=== PATIENT | female | born 1975 | race Hispanic/Latino ===

== ENCOUNTER → 2019-07-03 11:58 | Outpatient (CLI) | payer BC, SELFPAY ==
--- NOTE | ~2019-07-03 | US_ITS ---
EXAMINATION: US abdomen complete EXAM DATE: 07/03/2019 12:34 INDICATION: Generalized abdominal pain. Cholecystectomy 2000. TECHNIQUE: Multiple grayscale and Doppler images of the complete abdomen were obtained (by a technolo tigre who performed the scan) and subsequently reviewed. There is no prior study for comparison. FINDINGS: The abdominal aorta is normal in caliber. Visualized portion IVC is patent. The pancreatic head a nd body are normal in appearance. The pancreatic tail is not visualized. The liver has normal echogenicity and contour. There are no focal liver lesions identified. There is no evidence of intrahepatic biliary duct dilation. Portal venous flow was seen in the hepatopedal , normal direction and has normal Doppler waveform. Common bile duct measures 4 mm, which is normal. The gallbladder fossa is unremarkable. Right kidney: There is normal contour and echogenicity. It measures 10.0 x 4.4 x 6.5 centimeters. There are no focal renal lesions identified. There is no hydronephrosis. Left kidney: There is normal contour and echogenicity. It measures 13.0 x 7.0 x 5.4 centimeters. T here are no focal renal lesions identified. There is no hydronephrosis. The spleen measures 10.5 x 3.8 centimeters and is morphologically normal. IMPRESSION: 1. Unremarkable complete abdominal ultrasound exam. Reviewed, dictated and finalized at location A. IC AND ACCESSORIES ESTIMATOR
== END ==
PROVIDERS: PCP Physician Assistant; Visit Provider Physician Assistant
DX: R10.10 Upper abdominal pain, unspecified (principal)
CPT/HCPCS: 76700

== ENCOUNTER → 2019-08-16 13:08 | Outpatient (CLI) | payer BC, SELFPAY ==
--- NOTE | ~2019-08-16 | MM_ITS ---
EXAMINATION: MM screening mar BI w kimberly HISTORY: Screening mammogram TECHNIQUE: Craniocaudal and mediolateral oblique 3-D tomosynthesis images were obtained and synthetic 2-D images were generated. CAD analysis was submitted and interpreted. COMPARISON: 03/06/2018 BREAST PARENCHYMAL COMPOSITION: There are scattered areas of fibroglandular density. FINDINGS: There is no evidence of suspicious mass, calcification, or architectural distortion to sugg est malignancy in either breast. There has been no suspicious interval change. IMPRESSION: 1. No mammographic evidence of malignancy. 2. Recommend routine screening mammography in one year. BI-RADS Category 1: Negative Reviewed, dictated and finalized at location A.
== END ==
DX: Z12.31 Encounter for screening mammogram for malignant neoplasm of breast (principal)
CPT/HCPCS: 77063; 77067

== ENCOUNTER → 2019-08-16 13:09 | Outpatient (CLI) | payer BC, SELFPAY ==
--- NOTE | ~2019-08-16 | XR_ITS ---
XR UGIAC w kub DATE: 08/16/2019 14:06 INDICATION: Upper abdominal pain. Gastroesophageal reflux. TECHNIQUE: Pastrycook'S Assistant AP view of abdomen Air-contrast upper gastrointestinal series 1.3 minutes fluoroscopy time 22.217 DAP 72 images COMPARISON: 07/03/2019 complete abdominal ultrasound examination FINDINGS: There is normal deglutition and esophageal peristalsis. No stricture, mucosal fold thickeni ng, erosion, ulceration or intraluminal mass lesion of the esophagus, stomach or duodenum is detected . The proximal jejunum appears normal. Surgical clips, right upper quadrant, consistent with cholecystectomy. IMPRESSION: Status post cholecystectomy Normal upper gastrointestinal series examination Reviewed, dictated and finalized at Location A. Reviewed, dictated and finalized at location B.
== END ==
PROVIDERS: PCP Physician Assistant; Visit Provider Physician Assistant
DX: R10.10 Upper abdominal pain, unspecified (principal); Z90.49 Acquired absence of other specified parts of digestive tract
CPT/HCPCS: 74246

== ENCOUNTER 2020-05-26 01:03 | Outpatient (CLI) | payer SELFPAY ==
[2020-05-26 17:10] LABS: SARS-CoV-2 RNA PCR Negative
== END 2020-05-26 01:04 | disposition home or self-care (01) ==
LOC: ANHCOVIDDT 01:03
PROVIDERS: Surgery Plastic and Reconstructive Surgery; PCP Physician Assistant; Visit Provider Internal Medicine Gastroenterology
DX: Z01.812 Encounter for preprocedural laboratory examination (principal); Z20.828 Contact with and (suspected) exposure to other viral communicable diseases
CPT/HCPCS: 87635; C9803; U0003

== ENCOUNTER 2020-05-26 07:43 | Outpatient (CLI) | payer SELFPAY ==
--- NOTE | 2020-05-26 07:45 | ECG_ITS ---
Measurements Intervals [place] Rate: 64 P: -1 VT: 133 QRS: 34 QRSD: 92 T: 29 QT: 383 QTc: 397 Interpretive Statements SINUS RHYTHM BASELINE ARTIFACT- I, II, III, AVR, AVL, AVF NORMAL ECG Electronically Signed On 05-26-2020 9:52:52 HAND SHOE CUTTER by Augustus Michelle D.O.
[2020-05-26 08:09] LABS: Hematocrit 34.7 % (37.0-47.0); Hemoglobin 11.2 g/dL (12.0-15.0)
[2020-05-26 08:23] LABS: Anion Gap 3 mmol/L (8-16); Blood Urea Nitrogen 15 mg/dL (7-17); Calcium 9.1 mg/dL (8.4-10.2); Carbon Dioxide 32 mmol/L (22-30); Chloride 104 mmol/L (98-107); Estimated Glomerular Filt Rate > 60; Glucose 100 mg/dL (65-105); Potassium 4.1 mmol/L (3.4-5.0); Sodium 139 mmol/L (137-145)
== END 2020-05-26 07:44 | disposition home or self-care (01) ==
LOC: ANHSURGERY 07:45
PROVIDERS: Anesthesiology; PCP Physician Assistant; Visit Provider Surgery Plastic and Reconstructive Surgery
DX: Z01.818 Encounter for other preprocedural examination (principal); L57.4 Cutis laxa senilis; I10 Essential (primary) hypertension
CPT/HCPCS: 36415; 80048; 85014; 85018; 93005

== ENCOUNTER 2020-05-29 00:53 | Day surgery (SDC) | payer OTHER, SELFPAY ==
[2020-05-20 08:12] VITALS: BMI 29.0
--- NOTE | 2020-05-27 12:27 | WPDANESEPPF ---
Anes - Initial Pre Proc Eval Procedure: Operation Date: 05/29/20 13:00 Proposed Procedures p Abdominoplasty - Moises Gentile MD s Bilateral Breast Mastopexy - Moises Gentile MD Date/Time: 05/27/20 12:27 Surgeon: Moises Gentile MD Pre Op Diagnosis: skin laxity Patient Data Age: 45 Gender: F Height: 1.65 m Weight: 79 kg Allergies Allergy/AdvReac Type Severity Reaction Status Date / Time adhesive tape Allergy Mild Hives Verified 05/29/20 11:11 ciprofloxacin Allergy Mild Rash Verified 05/29/20 11:11 codeine Allergy Mild Itching Verified 05/29/20 11:11 Home Medications Medication Instructions Recorded Confirmed Type cetirizine 10 mg PO DAILY 03/24/20 05/29/20 History hydrochlorothiazide 12.5 mg tablet 12.5 mg PO DAILY 03/24/20 05/29/20 History losartan 100 mg tablet 100 mg PO DAILY 03/24/20 05/29/20 History montelukast 10 mg PO DAILY 03/24/20 05/29/20 History omeprazole 40 mg capsule,delayed 40 mg PO DAILY 03/24/20 05/29/20 History release carisoprodol 350 mg tablet 350 mg PO TID PRN #21 tablet 05/14/20 Rx docusate sodium 100 mg capsule 100 mg PO DAILY #14 cap 05/14/20 Rx ondansetron HCl 4 mg tablet 4 mg PO Q8H #28 tablet 05/14/20 Rx oxycodone-acetaminophen 5 mg-325 1 tablet PO Q6H PRN #15 tablet 05/14/20 Rx mg tablet hyoscyamine sulfate 0.375 mg PO Q12H 05/20/20 05/29/20 History Patient hx anesthesia problems: none Family hx anesthesia problems: none PMFSH Past Medical History Medical History (Updated 05/27/20 @ 12:27 by Ruben Fleming DO) GERD (gastroesophageal reflux disease) High blood pressure Surgical History Surgical History (Updated 05/27/20 @ 12:27 by Ruben Fleming DO) History of section x2 History of cholecystectomy History of discectomy History of tonsillectomy Social History Social History Years smoked: 10 Smoking status: Former smoker Tobacco type: cigarettes Smoking end date: 06/30/06 Alcohol intake: current Alcohol use details: once a month Substance use: never Substance use type: does not use Living arrangements: with family Gender identity (if verbalized by the patient): Female Spiritual care concerns: No Anes - Eval Final PreProcedure Day of Procedure 05/27/20 12:27 Patient weight: overweight Heart: regular rate and rhythm Lungs: clear to auscultation and normal air movement Airway: Mallampati scale class II Neurological: alert and oriented Last oral intake: >/= 8 hours ASA classification: II Emergent: no Anesthetic plan: proceed Anesthesia type and monitoring: general ETT and standard monitoring Informed Consent: The patient's anesthetic plan and its attendant risks and benefits were discussed with the patient/family/POA. Questions were solicited and answers provided to the satisfaction of the patient/family/POA.
[2020-05-29] VITALS (15 sets, daily range): BP systolic 137–159; BP diastolic 84–96; PULSE 81–95; RESP 16–21; TEMP 36.4–38.6; O2SAT 95–100; BMI 28.7
[2020-05-29 11:38] LABS: Urine Cotinine NEGATIVE
[2020-05-29] MEDS: LACTATED RINGERS 1,000 ML 30 ML IV CONT ×2 (12:01→17:37)
--- NOTE | 2020-05-29 12:02 | WPDHPUPDATE1 ---
History and Physical Update Update Date/Time: 05/29/20 12:02 History and Physical has been reviewed, including an updated exam of the patient. There are NO changes in the patient's condition. Risks, benefits, and alternatives have been discussed and questions answered. Patient agrees to proceed with procedure.
--- NOTE | 2020-05-29 12:35 | PM.PROC ---
Procedure Note - Detailed Date of procedure: 05/29/20 Pre-op diagnosis: skin laxity Post-op diagnosis: same Procedure performed: 1. Mastopexy 2. Progressive tension abdominoplasty Description of procedure: She is here today for abdominoplasty and mastopexy. Previously and again today the risks, benefits, alternatives were discussed in extensive detail. I wanted her to be very realistic about the risks involved as well as expectations. We discussed aftercare and what to monitor for. I was very upfront about the risks of wound breakdown leading to loss of skin, open wounds, and need for additional procedures with permanent abdominal deformity. We discussed DVT/PE risks and management. Made sure answered all of her questions to her satisfaction today and consent was obtained. She was marked in the preoperative holding area with her verification. The patient was taken to the operating room placed supine on the operating table. Anesthesia was provided by anesthesiology. A walker catheter was started. She was prepped and draped in a standard sterile fashion. A surgical time-out was taken. Mastopexy was completed first. I tumesced with a small volume of tumescent solution. She was tailor tacked into position. I placed her in a sitting position and marked out the nipple-areolar complex at 42 mm. This was based on preoperative planning, intraoperative measurements and observations which were in full agreement. I placed supine. De-epithelialized the superior medial pedicle. De-epithelialized the inferior and central tissue. I copiously irrigated the tissue after elevating along the pectoralis fascia. Verified strict hemostasis. I created a inferiorly based auto augmentation flap as well which was sutured deep to the glandular tissue along the pectoralis major with 2-0 PDS. I then reapproximated the vertical pillars and the IMF with 2-0 PDS. This is followed by 3-0 Monocryl on the vertical and around the areola and 3-0 strata fix along the IMF. Final closure was running subcuticular 4-0 Monocryl and Steri-Strips. We then proceeded the abdomen. I placed the patient in a flexed position to verify the upper and lower markings would reach. I then placed her supine. A thorough abdominal examination was completed. Stab incisions were made and used tumescent solution. A 10 blade was used to make the upper incision. I continued dissection down to the level of fascia. Elevated just what was necessary for repair of the diastasis and discontinuous undermining otherwise. I then again flexed the bed to verify the upper skin flap would reach the lower markings without tension. Once verified I placed her supine once again and a 10 blade used to make the lower incision. I elevated up to level the umbilicus and left the umbilicus intact on a well-vascularized stalk. The intervening tissue was removed. A 2 mm blunt cannula and Exparel which was mixed 20 cc in 100 cc for a total volume of 120 cc I injected deep to the fascia bilaterally as well as along the incision lines. I plicated the diastasis recti using 0 PDO stratafix barbed suture. This was in 2 separate layers using 2 separate sutures as well. I repaired around the umbilicus leaving plenty of room for well-vascularized stalk of the umbilicus with 2-0 PDS. I plicated a second row bilateral with 0 PDO stratafix barbed suture as well. The patient was flexed and starting from superior to inferior began plication using 2-0 Vicryl to obliterate all space in a standard progressive tension fashion. At the umbilicus I marked out the location of the skin and inset this with 3-0 Monocryl and 4-0 nylon. I continued the remainder of the plication using 2-0 Vicryl until I reached my lower planned scar line. I trimmed any excess skin of the upper flap making sure this was a tension-free closure. I then approximated using a 3 point suture with 2-0 Vicryl followed by 3-0 stratafix ,running subcuticular 4-0 Monocr
[2020-05-29] MEDS: ceFAZolin 2 GM/D5W 50 ML 2 GM/50 ML BAG IVPB (12:49)
[2020-05-29] MEDS: ONDANSETRON INJ 4 MG/2 ML VIAL IV PUSH ×2 (17:47→18:16)
--- NOTE | 2020-05-29 17:55 | SUR.PHASEI ---
1755-STATES NAUSEA IMPROVING.
--- NOTE | 2020-05-29 18:23 | SUR.PHASEI ---
0-STATES ABS BEGINNING TO HURT, RATES LEVEL 7 BUT STATES DOES NOT WANT MEDICATION UNTIL NAUSEA IS GONE. ENCOURAGED PT TO INFORM STAFF IF SHE CHANGES HER MIND AND WANTS PAIN MED.
[2020-05-29] MEDS: LACTATED RINGERS 1,000 ML 125 ML IV CONT (19:17)
[2020-05-29] MEDS: MORPHINE SULFATE (*CRX) 2 MG/ML INJ IV PUSH (19:19)
[2020-05-29] MEDS: carisoprodoL (*CRX) 350 MG TABLET PO (19:52)
[2020-05-29] MEDS: oxyCODONE/ACETAMINOPHEN (*CRX) 5-325 MG TABLET PO (21:08)
[2020-05-29] MEDS: LOSARTAN POTASSIUM 100 MG TABLET PO (21:19)
[2020-05-29] MEDS: hydroCHLOROthiazide 12.5 MG CAPSULE PO (21:19)
[2020-05-29] MEDS: DOCUSATE SODIUM 100 MG CAPSULE PO (22:36)
[2020-05-29] MEDS: ENOXAPARIN 40 MG/0.4 ML SYRINGE SUB-Q (22:37)
[2020-05-30] MEDS: oxyCODONE/ACETAMINOPHEN (*CRX) 5-325 MG TABLET PO ×4 (00:46→17:48)
--- NOTE | 2020-05-30 01:23 | PC.NURSE ---
05/29/2020 @ 9294 Patient brought up to second floor OB in bed. Pt assessment done and oriented to room, surroundings, and plan of care. Patient states understanding.
[2020-05-30] MEDS: carisoprodoL (*CRX) 350 MG TABLET PO ×3 (02:04→16:17)
[2020-05-30] MEDS: LACTATED RINGERS 1,000 ML 125 ML IV CONT (02:07)
[2020-05-30 02:10] VITALS: TEMP 37.9
[2020-05-30] MEDS: ONDANSETRON INJ 4 MG/2 ML VIAL IV PUSH ×2 (06:18→12:30)
[2020-05-30 06:20] VITALS: BP 127/85; PULSE 83; RESP 20; TEMP 37.3; O2SAT 99
[2020-05-30 08:45] VITALS: BP 137/84; PULSE 86; RESP 18; TEMP 37.9; O2SAT 100
[2020-05-30] MEDS: PANTOPRAZOLE 40 MG TABLET PO (08:50)
[2020-05-30] MEDS: DOCUSATE SODIUM 100 MG CAPSULE PO (08:51)
[2020-05-30] MEDS: MONTELUKAST SODIUM 10 MG TABLET PO (08:51)
[2020-05-30] MEDS: LORATADINE 10 MG TABLET PO (08:51)
[2020-05-30 09:30] VITALS: BP 126/82; PULSE 81; RESP 18; TEMP 37.6; O2SAT 100
--- NOTE | 2020-05-30 10:01 | WPDPN ---
Progress Note: A&P Assessment and Plan (1) Breast ptosis: Code(s): N64.81 - Ptosis of breast Status: Acute Assessment and Plan: Will plan for discharge home. Follow up in 1 week. Today we had a lengthy discussion about the care. What monitor for. Answered all of her questions to her satisfaction. She will call with any questions or concerns. (2) Skin laxity: Code(s): L57.4 - Cutis laxa senilis Status: Acute (3) High blood pressure: Code(s): I10 - Essential (primary) hypertension Status: Acute Assessment and Plan: She will resume her blood pressure medication. (4) GERD (gastroesophageal reflux disease): Code(s): K21.9 - Gastro-esophageal reflux disease without esophagitis Status: Acute Review of Systems Review of Systems: All systems reviewed & are unremarkable except as noted in HPI and below Exam Narrative: Exam Narrative: Bilateral breasts are soft. No signs of infection. No hematoma. No seroma. Good color and capillary refill. Abdomen is healing well. No signs of infection. No hematoma. No seroma. Good color and capillary refill. No calf tenderness. Negative Homans. Const: General: comfortable, no acute distress, alert and awake; No acute distress Orientation/consciousness: oriented to person HENMT: Head: normal to inspection Ears: external ears normal General nose exam: Normal external nose present Face and sinus: normal facial exam Eyes: General: appearance normal, both eyes and all related structures Periorbital: periorbital findings normal Eyelids: eyelids normal Conjunctivae: conjunctivae normal Neck: Neck: normal visual inspection Chest: Chest palpation & inspection: normal inspection of the chest Resp: Effort & Inspection: normal respiratory effort and able to speak in complete sentences GI: Inspection: normal to inspection Neuro: General: oriented to person Psych: Appearance: grossly normal Mental Status: mental status grossly normal Objective Data Vital Signs Vital Signs: Vital Signs - 24 hr 05/29/20 11:35 05/29/20 17:37 05/29/20 17:50 Temperature 36.6 C 36.4 C Pulse Rate 83 94 89 Respiratory Rate 16 16 19 Blood Pressure 145/84 H 159/94 H 157/92 H Pulse Oximetry 100 100 100 05/29/20 18:05 05/29/20 18:20 05/29/20 18:35 Temperature Pulse Rate 89 88 89 Respiratory Rate 21 H 16 20 Blood Pressure 144/91 H 155/95 H 157/96 H Pulse Oximetry 99 100 100 05/29/20 18:55 05/29/20 19:00 05/29/20 19:15 Temperature 37.3 C Pulse Rate 85 88 88 Respiratory Rate 18 16 16 Blood Pressure 143/93 H 137/90 140/89 Pulse Oximetry 100 100 100 05/29/20 19:30 05/29/20 20:00 05/29/20 21:00 Temperature Pulse Rate 81 87 95 Respiratory Rate 16 18 18 Blood Pressure 138/87 145/91 H 142/92 H Pulse Oximetry 100 99 95 05/29/20 22:00 05/29/20 22:45 05/30/20 02:10 Temperature 38.1 C H 37.9 C H Pulse Rate 95 Respiratory Rate 18 Blood Pressure 141/91 H 141/87 H Pulse Oximetry 95 05/30/20 06:20 05/30/20 08:45 Temperature 37.3 C 37.9 C H Pulse Rate 83 86 Respiratory Rate 20 18 Blood Pressure 127/85 137/84 Pulse Oximetry 99 100 Intake/Output Intake/Output: Intake & Output 05/27/20 05/28/20 05/29/20 05/30/20 23:59 23:59 23:59 23:59 Intake Total 250 949 Output Total 1360 600 Balance -1110 349 Meds/Results Medications: Active Medications Generic Name Dose Route Start Last Admin Trade Name Freq PRN Reason Stop Dose Admin Carisoprodol 350 mg 05/29/20 18:00 05/30/20 08:51 Carisoprodol (*Crx) 350 Mg Tablet PO 350 mg Q6HR JUAN ANTONIO Administration Docusate Sodium 100 mg 05/29/20 21:00 05/30/20 08:51 Docusate Sodium 100 Mg Capsule PO 100 mg Q12HR JUAN ANTONIO Administration Enoxaparin Sodium 40 mg 05/29/20 23:00 05/29/20 22:37 Enoxaparin 40 Mg/0.4 Ml Syringe SUB-Q 40 mg Q24H JUAN ANTONIO Administration Lactated Ringer's 1,000 mls @ 125 mls/hr 05/29/20 17:15 05/30
--- NOTE | 2020-05-30 10:12 | PM.DS ---
DS: Admitting Diagnosis Admitting Diagnosis Admitting Diagnosis: Breast ptosis Skin laxity DS: Discharge Diagnosis Discharge Diagnosis (1) Breast ptosis: Code(s): N64.81 - Ptosis of breast Status: Acute Assessment and Plan: She is doing very well after bilateral mastopexy and progressive tension abdominoplasty. Will discharge home. (2) Skin laxity: Code(s): L57.4 - Cutis laxa senilis Status: Acute (3) High blood pressure: Code(s): I10 - Essential (primary) hypertension Status: Acute (4) GERD (gastroesophageal reflux disease): Code(s): K21.9 - Gastro-esophageal reflux disease without esophagitis Status: Acute DS: Summary Hospital Course Hospital Course: Brought to the facility for mastopexy, progressive tension abdominoplasty. Kept overnight for pain control. Postoperatively has done well. Will plan for discharge home. Time Spent with Patient Time attestation: Total time spent providing and/or coordinating discharge services: Exam Narrative: Exam Narrative: Bilateral breasts are soft. No signs of infection. No hematoma. No seroma. Good color and capillary refill. Abdomen is healing well. No signs of infection. No hematoma. No seroma. Good color and capillary refill. No calf tenderness. Negative Homans. Const: General: comfortable, no acute distress, alert and awake; No acute distress Orientation/consciousness: oriented to person HENMT: Head: normal to inspection Ears: external ears normal General nose exam: Normal external nose present Face and sinus: normal facial exam Eyes: General: appearance normal, both eyes and all related structures Periorbital: periorbital findings normal Eyelids: eyelids normal Conjunctivae: conjunctivae normal Neck: Neck: normal visual inspection Chest: Chest palpation & inspection: normal inspection of the chest Resp: Effort & Inspection: normal respiratory effort and able to speak in complete sentences GI: Inspection: normal to inspection Neuro: General: oriented to person Psych: Appearance: grossly normal Mental Status: mental status grossly normal DS: Data Data Completed and Pending Labs on day of discharge: Labs from last 24 hours 05/29/20 11:14 Cotinine Negative Discharge Plan Discharge Patient Disposition: Home, Self-Care Discharge Instructions: POST OPERATIVE DISCHARGE INSTRUCTIONS FOR: Mastopexy / Abdominoplasty MOISES GENTILE M.D. [facility] [address] [place] [address] [address] for 24 hours after anesthesia and while you are taking pain medication. Take all prescribed medication as directed Diet as tolerated. No lifting more than 20 pounds or straining abdomen for 6 weeks. No lifting or activity that raises blood pressure for 48 hours. Regular walking / ambulation. Slowly stand up straight as tolerated. No showering until directed to. No pools or tubs for 2 weeks. Call with any questions or concerns. After 24 hours you may remove the dressings and bra / abdominal binder. At this point my may shower. Do not take pain medication before showering as the combination of medication and heat may cause you to feel dizzy or pass out. Let soap and water run over your incisions. Do not scrub or directly wash your incision. Replace the surgical bra and abdominal binder and wear it 23 hours per day. If you have any questions or concerns, please call the office . If it is after hours you will be directed to the radioisotope production operator exchange. Shortness of breath, chest pain, or other medical emergency dial 911 / proceed to the Emergency Room. Stand Alone Forms: General Discharge Instructions Follow-up/Referrals: Moises Gentile MD [Physician] - 1 Week Discharge Medications: Continued hydrochlorothiazide 12.5 mg tablet 12.5 mg PO DAILY RF: 0 omeprazole 40 mg capsule,delayed release(
--- NOTE | 2020-05-30 10:39 | WPDANESPN ---
Anes - Prog Note Post-Op Date/Time: 05/30/20 10:39 Cardiovascular status: normal Respiratory status: normal Airway patency: baseline Mental status: baseline Post-Op hydration status: normal Vital Signs: Last Vital Signs Temp 37.9 C H 05/30/20 08:45 Pulse 86 05/30/20 08:45 Resp 18 05/30/20 08:45 BP 137/84 05/30/20 08:45 Pulse Ox 100 05/30/20 08:45 Pain Score (VAS): 0 I/O: Intake & Output 05/29/20 05/30/20 05/30/20 23:59 07:59 15:59 Intake Total 200 849 100 Output Total 1360 600 Balance -1160 849 -500 05/29/20 11:14 Cotinine Negative Post-procedural complaints: nausea Patient Feedback: Patient satisfied with anesthetic care.
[2020-05-30 17:10] VITALS: TEMP 37.4
== END 2020-05-30 18:28 | disposition home or self-care (01) ==
LOC: ANHSURGERY 12:43 → ANHOB2 18:49
PROVIDERS: PCP Physician Assistant; Visit Provider Surgery Plastic and Reconstructive Surgery
PROC: (CPT 19316; principal; 2020-05-29 13:00)
PROC: (CPT 19316; 2020-05-29 13:00)
DX: Z41.1 Encounter for cosmetic surgery (principal); L57.4 Cutis laxa senilis; I10 Essential (primary) hypertension; K21.9 Gastro-esophageal reflux disease without esophagitis; Z87.891 Personal history of nicotine dependence; Z79.899 Other long term (current) drug therapy
CPT/HCPCS: 19316; 15830; 15847; 80307; 99199; A9270; C9290; J0171; J0690; J1100; J1170; J1650; J2250; J2270; J2405; J2704; J3010; J7120

== ENCOUNTER → 2021-02-19 13:51 | Outpatient (CLI) | payer BC, SELFPAY ==
--- NOTE | ~2021-02-19 | MM_ITS ---
EXAMINATION: MM screening mar BI w kimberly HISTORY: Screening. Bilateral breast lift April 2020. TECHNIQUE: Craniocaudal and mediolateral oblique 3-D tomosynthesis images were obtained and synthetic 2-D images were generated. CAD analysis was submitted and interpreted. COMPARISON: 08/16/2019, 03/06/2018 bilateral digital screening mammogram examinations BREAST PARENCHYMAL COMPOSITION: There are scattered areas of fibroglandular density. FINDINGS: There is minimal postoperative change of the breasts since 08/16/2019. There is no evidence of suspicious mass, calcification, or architectural distortion to suggest malignancy in either breast . There has been no suspicious interval change. IMPRESSION: 1. No mammographic evidence of malignancy. 2. Recommend routine screening mammography in one year. BI-RADS Category 2: Benign finding(s). Reviewed, dictated and finalized at location A.
== END ==
PROVIDERS: PCP Physician Assistant; Visit Provider Physician Assistant
DX: Z12.31 Encounter for screening mammogram for malignant neoplasm of breast (principal)
CPT/HCPCS: 77063; 77067

== ENCOUNTER → 2021-03-12 09:09 | Outpatient (CLI) | payer BC, SELFPAY ==
--- NOTE | ~2021-03-12 | XR_ITS ---
[id number] DATE: 03/12/2021 09:36 INDICATION: Pleurodynia TECHNIQUE: PA chest. 3 views of the left ribs. COMPARISON: None FINDINGS: Normal heart size. No hilar or mediastinal enlargement. No pulmonary infiltrate or consolid ation, pleural effusion or pulmonary vascular congestion or pneumothorax. No left rib fracture is detected. Surgical clips overlie the medial right upper abdomen. IMPRESSION: No left rib fracture detected No active cardiac pulmonary disease Reviewed, dictated and finalized at Location A. Reviewed, dictated and finalized at location B.
== END ==
PROVIDERS: PCP Physician Assistant; Visit Provider Physician Assistant
DX: R07.81 Pleurodynia (principal)
CPT/HCPCS: 71101

== ENCOUNTER → 2022-05-27 10:29 | Outpatient (CLI) | payer BC, SELFPAY ==
--- NOTE | ~2022-05-27 | MM_ITS ---
EXAMINATION: MM screening mar BI w kimberly HISTORY: Screening mammogram TECHNIQUE: Craniocaudal and mediolateral oblique 3-D tomosynthesis images were obtained and synthetic 2-D images were generated. CAD analysis was submitted and interpreted. COMPARISON: 02/19/2021, 08/16/2019, 03/06/2018 bilateral screening mammogram examinations BREAST PARENCHYMAL COMPOSITION: There are scattered areas of fibroglandular density. FINDINGS: Right breast: There is no evidence of suspicious mass, calcification, or architectural distortion to suggest malignancy in either breast. There has been no suspicious interval change. Left breast: There is suggestion of interval increased density in the posterior mid and upper left breast on MLO v iew since 02/19/2021. Diagnostic left mammogram and left breast ultrasound examination are recommended . IMPRESSION: 1. Interval increased density suggested in the mid and upper posterior left breast on MLO view compar ed to 02/19/2021 2. Diagnostic left mammogram and left breast ultrasound examination are recommended BI-RADS Category 0: Incomplete: Needs additional imaging evaluation. Reviewed, dictated and finalized at location A. ULATOR COMPOUNDER IMPRESSION: 1. Interval increased density suggested in the mid and upper posterior left sandi ast on MLO view compared to 02/19/2021 2. Diagnostic left mammogram and left breast ultrasound examination are recomme nded BI-RADS Category 0: Incomplete: Needs additional imaging evaluation.
== END ==
PROVIDERS: PCP Physician Assistant; Visit Provider Physician Assistant
DX: Z12.31 Encounter for screening mammogram for malignant neoplasm of breast (principal); R92.8 Other abnormal and inconclusive findings on diagnostic imaging of breast
CPT/HCPCS: 77063; 77067

== ENCOUNTER → 2022-06-21 08:26 | Outpatient (CLI) | payer BC, SELFPAY ==
--- NOTE | ~2022-06-21 | MMUS_ITS ---
EXAMINATION: MM diagnostic mar LT w kimberly, US breast LT complete HISTORY: Interval increased density in the mid and upper posterior left breast on screening MLO view of 05/27/2022 compared to prior mammogram of 02/19/2021 TECHNIQUE: Additional 3-D tomosynthesis images of the left breast were performed and synthetic 2-D im ages were generated. CAD analysis was submitted and interpreted. High resolution complete left breast ultrasound examination including all 4 quadrants and subareolar area was performed. COMPARISON: None FINDINGS: MAMMOGRAPHIC FINDINGS: Asymmetric nonspecific mammographic density is noted in the central to outer mid upper left breast. ULTRASOUND: 1:00 8 cm from nipple: Parallel circumscribed sonolucency measuring 2.8 x 4.3 x 5.3 mm consistent wit h simple cyst 1:00 8 cm from nipple: Parallel circumscribed sonolucency measuring 2.7 x 4.8 x 5.2 mm. 1:00 8 cm from nipple: 3.3 x 2.8 x 3 mm sonolucency, consistent with simple cyst 6:00 6 cm from nipple near scar: Septated 3.5 x 2.8 x 5.3 mm cyst No suspicious mass or shadowing is detected. IMPRESSION: 1. Benign findings 2. Routine annual mammographic screening is recommended BI-RADS Category 2: Benign finding(s). Reviewed, dictated and finalized at location A. NICAL ASSISTANT IMPRESSION: 1. Benign findings 2. Routine annual mammographic screening is recommended BI-RADS Category 2: Benign finding(s).
== END ==
PROVIDERS: PCP Physician Assistant; Visit Provider Physician Assistant
DX: R92.8 Other abnormal and inconclusive findings on diagnostic imaging of breast (principal)
CPT/HCPCS: 76641; 77061; 77065; G0279

== ENCOUNTER → 2022-07-05 12:59 | Outpatient (CLI) | payer BC, SELFPAY ==
--- NOTE | ~2022-07-05 | US_ITS ---
Thyroid ultrasound. Clinical History: Hyperthyroidism Findings: Real-time sonography of the thyroid gland was performed. The right lobe measures 5.0 x 1.9 x 1.9 cm. The left lobe measures 4.4 x 1.7 x 1.7 cm. The isthmus is 5 mm in AP diameter. No discrete thyroid nodule. Impression: No focal thyroid nodule. Correlate with thyroid function tests and/or nuclear medicine uptake scan, as indicated.. Reviewed, dictated and finalized at location M. R FEEDER Impression: No focal thyroid nodule. Correlate with thyroid function tests and/or nuclear medicine uptake scan, as i ndicated..
== END ==
PROVIDERS: PCP Physician Assistant; Visit Provider Physician Assistant
DX: E05.90 Thyrotoxicosis, unspecified without thyrotoxic crisis or storm (principal)
CPT/HCPCS: 76536

== ENCOUNTER → 2023-02-28 08:52 | Outpatient (CLI) | payer BC, SELFPAY ==
--- NOTE | ~2023-02-28 | MMUS_ITS ---
EXAMINATION: MM diagnostic mar RT w kimberly, US breast RT limited HISTORY: Pain of the outer right breast TECHNIQUE: Craniocaudal, mediolateral, and mediolateral oblique 3-D tomosynthesis images of the right breast were performed and synthetic 2-D images were generated. CAD analysis was submitted and interp reted. High resolution limited right breast ultrasound was performed. COMPARISON: 03/27/2022, 02/19/2021, 08/16/2019 BREAST PARENCHYMAL COMPOSITION: There are scattered areas of fibroglandular density. FINDINGS: MAMMOGRAPHIC FINDINGS: No suspicious mass, calcification, or architectural distortion are identified to suggest malignancy. There has been no suspicious interval change. No mammographic correlate is identified for the patient 's reported right breast pain. ULTRASOUND: There is a 4 mm cyst at the 8:00 location, 14 cm from the nipple. There is a 6 mm x 2 mm oval, circum scribed, parallel, hypoechoic mass with no posterior features or internal vascularity at the 7:00 loc ation, 13 cm from the nipple. A 5 mm x 2 mm mass with similar sonographic features is seen at the 6:0 0 location, 7 cm from the nipple. IMPRESSION: 1. Probably benign sonographically detected right breast masses. 2. Recommend 6 month follow-up right breast ultrasound. BI-RADS category 3, probably benign findings. Reviewed, dictated and finalized at location A. IMPRESSION: 1. Probably benign sonographically detected right breast masses. 2. Recommend 6 month follow-up right breast ultrasound. BI-RADS category 3, probably benign findings.
== END ==
PROVIDERS: PCP Physician Assistant; Visit Provider Physician Assistant
DX: Z12.31 Encounter for screening mammogram for malignant neoplasm of breast (principal); N64.4 Mastodynia; R92.8 Other abnormal and inconclusive findings on diagnostic imaging of breast
CPT/HCPCS: 76642; 77061; 77065; G0279

== ENCOUNTER → 2023-06-02 12:51 | Outpatient (CLI) | payer BC, SELFPAY ==
--- NOTE | ~2023-06-02 | MM_ITS ---
EXAMINATION: MM screening mar BI w kimberly HISTORY: Screening mammogram TECHNIQUE: Craniocaudal and mediolateral oblique 3-D tomosynthesis images were obtained and synthetic 2-D images were generated. CAD analysis was submitted and interpreted. COMPARISON: 02/28/2023, 06/21/2022, 05/27/2022, 02/19/2021 BREAST PARENCHYMAL COMPOSITION: There are scattered areas of fibroglandular density. FINDINGS: No suspicious mass, calcification, or architectural distortion are identified in either sandi ast to suggest malignancy. There has been no suspicious interval change. IMPRESSION: 1. No mammographic evidence of malignancy. 2. Recommend routine screening mammography in one year. In addition, patient is due for sonographic f ollow-up of probably benign sonographically detected right breast masses in August. BI-RADS Category 1: Negative Reviewed, dictated and finalized at location A. [employer] SUPPORT WORKER IMPRESSION: 1. No mammographic evidence of malignancy. 2. Recommend routine screening mammography in one year. In addition, patient is due for sonographic follow-up of probably benign sonographically detected righ t breast masses in August. BI-RADS Category 1: Negative
== END ==
PROVIDERS: PCP Physician Assistant; Visit Provider Physician Assistant
DX: Z12.31 Encounter for screening mammogram for malignant neoplasm of breast (principal)
CPT/HCPCS: 77063; 77067